=== PATIENT | male | born 1960 | race Caucasian/White ===

== ENCOUNTER 2018-03-14 09:42 | Emergency (ER) | payer BC ==
[2018-03-14 10:17] VITALS: BP 126/87
--- NOTE | 2018-03-14 11:38 | UC ---
Masoud Diego Gabriel, scribed for Chun Maya MD on 03/14/18 at 1000 . Skin Complaint HPI - HPI Summary HPI Summary: This patient is a 58 year old M presenting to [facility] [place] c/o unknown insect bite on the right calf that he noticed on 03-10-18. Patient reports fever of 101F, AHN, general malaise, and redness at bite site. Pt states he is unsure if it was a tick. Previous bee allergy. - History of Current Complaint Time Seen by Provider: 03/14/18 09:55 Stated Complaint: RIGHT LEG SKIN COMPLAINT Hx Obtained From: Patient Onset/Duration: Lasting Days, Still Present Skin Exposure Onset/Duration: Days Ago Onset Severity: Mild Current Severity: Mild Pain Intensity: 0 Location: Other - RLE Character: Redness Associated Signs & Symptoms: Positive: Fever - Allergy/Home Medications Allergies/Adverse Reactions: Allergies Allergy/AdvReac Type Severity Reaction Status Date / Time ezetimibe [From Vytorin] Allergy Muscle Ache Verified 03/14/18 10:08 simvastatin [From Vytorin] Allergy Muscle Ache Verified 03/14/18 10:08 Review of Systems Constitutional: Fever, Other - general malaise Skin: Other - insect bite Neurological: Headache All Other Systems Reviewed And Are Negative: Yes PMH/Surg Hx/FS Hx/Imm Hx Other History Of: Negative For: HIV, Hepatitis B, Anticoagulant Therapy - Surgical History Surgical History: None - Family History Known Family History: Negative: Respiratory Disease, Seizure Disorder, Blood Disorder - Social History Alcohol Use: None Substance Use Type: None Smoking Status (MU): Never Smoked Tobacco Physical Exam - Summary Physical Exam Summary: General: well-appearing, no pain distress Skin: right popliteal area is erythematous, and there is a blanching rash that is [id number]. No foreign body seen, no streaking Head: normal Eyes: EOMI, CARMEN ENT: normal Neck: supple, nontender Respiratory: CTA, breath sounds present Cardiovascular: RRR Abdomen: soft, nontender Bowel: present Musculoskeletal: normal, strength/ROM intact Neurological: sensory/motor intact, A&O x3 Psychological: affect/mood appropriate Triage Information Reviewed: Yes Vital Signs: Initial Vital Signs Temp 98.5 F 03/14/18 10:00 Pulse 68 03/14/18 10:00 Resp 16 03/14/18 10:00 BP 126/87 03/14/18 10:00 Pulse Ox 98 03/14/18 10:00 Vital Signs Reviewed: Yes Course/Dx - Diagnoses Provider Diagnoses: RIGHT LEG CELLULITIS Discharge - Sign-Out/Discharge Documenting (check all that apply): Discharge/Admit/Transfer - Discharge Plan Condition: Stable Disposition: HOME Prescriptions: DOXYcycline CAP(*) [DOXYcycline 100MG CAP(*)] 100 mg PO BID #[id number] cap Patient Education Materials: Cellulitis (ED) Referrals: Geraldine Connelly MD [Primary Care Provider] - Additional Instructions: FOLLOW UP WITH YOUR DOCTOR. GET RECHECKED FOR ANY WORSENING OF YOUR CONDITION OR QUESTIONS OR CONCERNS. - Billing Disposition and Condition Condition: STABLE Disposition: Home The documentation as recorded by the Masoud sotelo Gabriel accurately reflects the service I personally performed and the decisions made by me, Chun Maya MD.
== END 2018-03-14 10:09 | disposition home or self-care (01) ==
LOC: UCEAST 09:42
DX: S80.861A Insect bite (nonvenomous), right lower leg, initial encounter (principal); L03.115 Cellulitis of right lower limb; W57.XXXA Bitten or stung by nonvenomous insect and other nonvenomous arthropods, initial encounter; Y93.9 Activity, unspecified; Y92.9 Unspecified place or not applicable; R50.9 Fever, unspecified; R53.81 Other malaise; R51 Headache; Z88.8 Allergy status to other drugs, medicaments and biological substances
CPT/HCPCS: 99212; G0463